=== PATIENT | female | born 1995 | race Caucasian/White ===

== ENCOUNTER 2021-01-01 15:42 | Emergency (ER) | payer SELFPAY ==
[~2021-01-01] VITALS: Ht 152.4 cm; Wt 64.3 kg
[2021-01-01 15:59] VITALS: BP 115/77
--- NOTE | 2021-01-01 16:12 | NUR ---
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
--- NOTE | 2021-01-01 16:45 | NUR ---
PT HERE C/O PAIN DURING INTERCOURSE, STATES SHE HAD A CONDOM BREAK.
[2021-01-01 18:06] LABS: MICROSCOPIC NOT IND
[2021-01-01 18:29] LABS: CLUE CELLS NONE SEEN (NONE SEEN); WET PREP WBCS NONE SEEN (FEW)
[2021-01-01] MEDS ORDERED: AZITHROMYCIN 500 MG TABLET PO ONE (19:00)
[2021-01-01] MEDS ORDERED: CEFTRIAXONE 250 MG IM ONE (19:00)
[2021-01-01] MEDS ORDERED: AZITHROMYCIN 500 MG TABLET ONE ×2 (19:03→19:12)
[2021-01-01] MEDS ORDERED: CEFTRIAXONE 250 MG ONE (19:03)
== END 2021-01-01 19:18 | disposition home or self-care (01) ==
LOC: ED 18:41
DX: N76.0 Acute vaginitis (principal); F17.200 Nicotine dependence, unspecified, uncomplicated
CPT/HCPCS: 81003; 87210; 87491; 87591; 87808; 96372; 99283; J0696